=== PATIENT | female | born 1985 | race Caucasian/White ===

== ENCOUNTER 2021-01-01 16:24 | Emergency (ER) | payer OTHER, SELFPAY ==
--- NOTE | ~2021-01-01 | XR_ITS ---
EXAMINATION: XR knee LT min 4V EXAM DATE: 01/01/2021 17:02 INDICATION: Fell on a rock 2 days ago. Left knee pain. Initial encounter. TECHNIQUE: Left knee frontal, crosstable lateral, orthogonal oblique projections for interpretation. There is no prior study for comparison. FINDINGS: No evidence osteochondral defect or joint body in the left knee joint. No joint effusion . There are no acute fractures or dislocations identified. There is no subcutaneous gas. The soft t issue is unremarkable. There are no radiopaque foreign bodies. IMPRESSION: No acute osseous findings. Reviewed, dictated and finalized at location A. IMPRESSION: No acute osseous findings.
[2021-01-01 16:37] VITALS: PULSE 86; RESP 16; TEMP 36.9
[2021-01-01 16:38] VITALS: BP 126/86
--- NOTE | 2021-01-01 17:14 | ED.LOWEXIN ---
HPI - Extremity Injury (Lower) General Chief Complaint: Extremity Injury, Lower Stated Complaint: Knee Pain Time Seen by Provider: 01/01/21 16:48 Source: patient and RN notes reviewed Mode of arrival: ambulatory Limitations: no limitations History of Present Illness HPI Narrative: Patient presents today complaining of left knee pain. She fell 2 days ago, striking her knee on a rock, and again twisting it while falling while walking into a tent. Denies numbness or tingling. Today while at work, she noticed the area became hot and red. She currently rates her pain 6/10, which increases with weightbearing or movement of the knee. She has been taking Aleve, ibuprofen, and applying ice with mild relief. MD complaint: knee injury Related Data Home Medications Medication Instructions Recorded Confirmed bupropion HCl 150 mg PO Q12H 01/01/21 01/01/21 fluoxetine 20 mg PO DAILY 01/01/21 01/01/21 Allergies Allergy/AdvReac Type Severity Reaction Status Date / Time azithromycin Allergy Mild Diarrhea Verified 10/19/08 11:56 latex Allergy Unknown Verified 07/27/09 19:26 Review of Systems Review of Systems: Narrative: CONSTITUTIONAL: Denies body aches, fever, chills, or sweats. EYES: Denies visual changes, redness, or discharge. ENT: Denies rhinorrhea, congestion, sore throat, or otalgia. CARDIOVASCULAR: Denies chest pain, palpitations, or edema. RESPIRATORY: Denies cough or dyspnea. GASTROINTESTINAL: Denies abdominal pain, nausea, vomiting, or diarrhea. GENITOURINARY: Denies dysuria or hematuria. SKIN: Denies rash, itching, or wounds. MUSCULOSKELETAL: Denies back pain, or myalgia. + Left knee pain NEUROLOGIC: Denies headache, numbness, tingling, or weakness. PSYCH: Denies depression or anxiety. PMFSH Comments At time of signature, I have reviewed and agree with nursing past medical, surgical, social and family history unless otherwise noted. Please see nursing chart for further information. There is no relevant family history pertinent to the presenting complaint Exam Narrative: Exam Narrative: GENERAL: Well-appearing, well-nourished, and in no acute distress. HEAD: Normocephalic, atraumatic. EYES: EOMI. No redness or drainage. Conjunctivae normal. ENT: Mucous membranes pink and moist. NECK: Normal AROM. CHEST: No respiratory distress. EXTREMITIES: Left knee: 6 x 8 cm area of erythema and tenderness with few small abrasions to the patella. Pain at the end of full extension and at the end of full flexion. Distal sensation intact. Capillary refill normal. Pedal pulse normal. SKIN: Warm, dry, no rash. Capillary refill normal. Normal skin turgor. NEURO: No focal deficits. Alert and oriented x3. Gait steady. PSYCH: Normal affect. No signs of depression or anxiety. Course Vital Signs Vital signs: Vital Signs Temperature 98.5 F 01/01/21 16:37 Pulse Rate 86 01/01/21 16:37 Respiratory Rate 16 01/01/21 16:37 Temperature 98.5 F 01/01/21 18:03 Pulse Rate 86 01/01/21 18:03 Respiratory Rate 16 01/01/21 18:03 Blood Pressure 126/86 01/01/21 18:03 Reviewed. Pt has been instructed to follow up with her PCP regarding her elevated blood pressure today. MDM - Extremity Injury (Lower) Differential Diagnosis Differential diagnosis: Likely other (Cellulitis, abscess, abrasion, fracture, knee effusion) Imaging Data Radiologist's impression: ITS Impressions Knee X-Ray 01/01/21 17:09 IMPRESSION: No acute osseous findings. Critical Care Time Critical Care Time Critical Care Time: No Discharge Plan Discharge Clinical Impression: Cellulitis of knee, left Abrasion of knee, left Qualifiers: Encounter type: initial encounter Qualified Code(s): S80.212A - Abrasion, left knee, initial encounter Patient Disposition: Home, Self-Care Condition: Stable Instructions: Antibiotic Form, Cellulitis (ED) Additional Instructions: Your x-ray is negative for anything tio
[2021-01-01] MEDS: TETANUS,DIPHTHERIA,AC PERTUSSIS ADULT (0.5 ML) BOOSTRIX IM (17:56)
[2021-01-01 18:03] VITALS: BP 126/86; PULSE 86; RESP 16; TEMP 36.9
== END 2021-01-01 18:21 | disposition home or self-care (01) ==
PROVIDERS: Emergency Provider Nurse Practitioner
DX: L03.116 Cellulitis of left lower limb (principal); S80.212A Abrasion, left knee, initial encounter; W19.XXXA Unspecified fall, initial encounter; Z23 Encounter for immunization; F41.9 Anxiety disorder, unspecified
CPT/HCPCS: 73564; 90471; 90715; 99213; G0463

== ENCOUNTER → 2021-03-23 09:44 | Outpatient (CLI) | payer OTHER, SELFPAY ==
[2021-03-23 19:39] LABS: SARS-CoV-2 RNA PCR Negative
== END ==
PROVIDERS: PCP Emergency Medicine; Visit Provider Emergency Medicine
DX: J02.9 Acute pharyngitis, unspecified (principal); Z20.822 Contact with and (suspected) exposure to COVID-19
CPT/HCPCS: C9803; U0003; U0005

== ENCOUNTER 2021-04-23 14:05 | Emergency (ER) | payer OTHER, SELFPAY ==
[2021-04-23 14:17] VITALS: BP 123/88; PULSE 75; RESP 18; TEMP 37; O2SAT 100
--- NOTE | 2021-04-23 14:34 | ED.URI ---
HPI - URI/Sore Throat General Chief Complaint: Upper Respiratory Infection Stated Complaint: Cough,Sore Throat,Headache,Sinus Source: patient Mode of arrival: ambulatory Limitations: no limitations History of Present Illness HPI Narrative: Patient is a 35-year-old female who presents with complaints of cough, congestion sinus pressure, ear pain and sore throat for the past 4 to 5 days. She reports initially started approximately 10 or 11 days ago and resolved then recurred over the past few days. She denies fever. She denies exposure to Covid. She reports Covid vaccinated x2. She denies significant medical history. MD elicited complaint: cough, sore throat, nasal congestion and sinus pain Related Data Home Medications Medication Instructions Recorded Confirmed bupropion HCl 150 mg PO Q12H 01/01/21 04/23/21 fluoxetine 20 mg PO DAILY 01/01/21 04/23/21 Allergies Allergy/AdvReac Type Severity Reaction Status Date / Time azithromycin Allergy Mild Diarrhea Verified 04/23/21 14:40 latex Allergy Mild Hives Verified 04/23/21 14:40 Review of Systems Review of Systems: CONSTITUTIONAL: Denies fever, chills, or sweats. EYES: Denies visual changes, redness, or discharge. ENT: Reports rhinorrhea, congestion, sore throat, and bilateral otalgia. CARDIOVASCULAR: Denies chest pain, palpitations, or edema. RESPIRATORY: Reports cough, denies dyspnea. GASTROINTESTINAL: Denies abdominal pain, nausea, vomiting, or diarrhea. GENITOURINARY: Denies dysuria or hematuria. SKIN: Denies rash or itching. MUSCULOSKELETAL: Denies back pain, joint pain, or myalgia. NEUROLOGIC: Denies headache, numbness, dizziness, or weakness. PSYCHIATRIC: Denies anxiety or depression. [facility] Past Medical History Medical History No significant past medical history Surgical History Surgical History History of tonsillectomy and adenoidectomy Family History Family History (Updated 04/23/21 @ 14:37 by JEAN-PIERRE Quevedo) Other Arthritis Cancer Diabetes mellitus Hypertension Social History Social History (Updated 04/23/21 @ 14:38 by Lauren M. Keen, [employer]) Smoking status: Current some day smoker Tobacco type: cigarettes Alcohol intake: current Alcohol use details: Occasional Substance use: never Living arrangements: with family Occupation/Education: occupation Comments At the time of signature, I have reviewed and agree with nursing past medical, surgical, social, and family history unless otherwise noted. Please see nursing chart for further information. There is no relevant family history pertinent to the presenting complaint. Exam Narrative: GENERAL: Well-appearing, well-nourished, and in no acute distress. HEAD: Normocephalic, atraumatic. EYES: EOMI. No redness or drainage. Conjunctiva are normal. ENT: Mucous membranes pink and moist. Nares congested. No rhinorrhea. TMs full and cloudy. Throat erythema noted. Uvula midline. Maxillary sinus tenderness with palpation NECK: AROM. Supple. No lymphadenopathy. CHEST: No respiratory distress. HEART: Regular rate and rhythm. EXTREMITIES: Normal range of motion. SKIN: Warm, dry, no rash. NEURO: No focal deficits. Alert and oriented x3. Gait steady. PSYCH: Normal affect. No signs of depression or anxiety. Course Vital Signs Vital signs: Vital Signs Temperature 37.0 C 04/23/21 14:17 Pulse Rate 75 04/23/21 14:17 Respiratory Rate 18 04/23/21 14:17 Blood Pressure 123/88 04/23/21 14:17 Pulse Oximetry 100 04/23/21 14:17 Temperature 37.0 C 04/23/21 14:17 Pulse Rate 75 04/23/21 14:17 Respiratory Rate 18 04/23/21 14:17 Blood Pressure 123/88 04/23/21 14:17 Pulse Oximetry 100 04/23/21 14:17 Reviewed-patient is informed that they may have pre-hypertension or hypertension based on a blood pressure reading. I recommend the patie
== END 2021-04-23 14:25 | disposition home or self-care (01) ==
PROVIDERS: Emergency Provider Nurse Practitioner
DX: J32.9 Chronic sinusitis, unspecified (principal); F17.210 Nicotine dependence, cigarettes, uncomplicated
CPT/HCPCS: 99213; G0463